=== PATIENT | male | born 1990 | race Caucasian/White ===

== ENCOUNTER 2017-03-30 04:45 | Emergency (ER) | payer OTHER ==
[~2017-03-30] VITALS: Ht 182.9 cm; Wt 81.2 kg
[2017-03-30 04:51] VITALS: BP 142/85
--- NOTE | 2017-03-30 04:51 | NUR ---
AMBULATED TO ER BED 5
--- NOTE | 2017-03-30 04:58 | NUR ---
Patient being evaluated by physician at bedside.
[2017-03-30] MEDS ORDERED: KETOROLAC 60 MG/2 ML VIAL IM ONE (05:00)
[2017-03-30 05:43] VITALS: BP 124/82
--- NOTE | 2017-03-30 05:47 | NUR ---
Patient discharged with v/s stable. Written and verbal after care instructions given and explained. Patient alert, oriented and verbalized understanding of instructions. Ambulatory with steady gait. All questions addressed prior to discharge. ID band removed. Patient advised to follow up with PMD. Rx of MOTRIN given. Patient educated on indication of medication including possible reaction and side effects. Opportunity to ask questions provided and answered.Client mentioned that he went to see his urologist x 1 week ago for a uti,client stated he has a kidney medical history.Client advised to follow up with urologist.
== END 2017-03-30 05:43 | disposition home or self-care (01) ==
LOC: MED 04:45
DX: M54.5 Low back pain (principal)
CPT/HCPCS: 96372; 99283; J1885; 81002

== ENCOUNTER 2017-04-21 09:08 | Emergency (ER) | payer OTHER ==
[~2017-04-21] VITALS: Ht 180.3 cm; Wt 80.7 kg
[2017-04-21 09:21] VITALS: BP 130/77
--- NOTE | 2017-04-21 09:22 | NUR ---
Patient ambulated to bed 7. RN evaluating patient at bedside.
--- NOTE | 2017-04-21 09:27 | NUR ---
Dr. Herrera evaluating patient at bedside.
--- NOTE | 2017-04-21 09:27 | NUR ---
PATIENT PRESENTS TO ED WITH C/O ABDOMINAL PAIN. PT STATES HE STARTED FEELING ABD PAIN 2 DAYS AGO BUT THE PAIN STARTED FEELING MORE SEVERE TODAY. PATIENT REPORTS N/V AND DIARRHEA. SKIN IS PINK/WARM/DRY; AAOX4 WITH EVEN STEADY GAIT; LUNGS CLEAR BL; HR EVEN AND REGULAR; PT DENIES ANY FEVER, CP, SOB, OR COUGH AT THIS TIME; PATIENT STATES PAIN OF 8/10 AT THIS TIME; VSS; PATIENT POSITIONED FOR COMFORT; HOB ELEVATED; BEDRAILS UP X2; BED DOWN. ER MD MADE AWARE OF PT STATUS.
[2017-04-21] MEDS ORDERED: DICYCLOMINE 20 MG/2 ML VIAL IM ONE (09:30)
[2017-04-21 10:10] LABS: BASOPHILS # (AUTO) 0.3 K/uL (0.00-0.22); BASOPHILS % (AUTO) 4.5 % (0.0-2.0); EOSINOPHILS # (AUTO) 0.2 K/uL (0-0.4); EOSINOPHILS % (AUTO) 3.1 % (0.0-4.0); HEMATOCRIT 48.1 % (36-52); HEMOGLOBIN 16.2 g/dL (12.0-18.0); LYMPHOCYTES # (AUTO) 1.5 K/uL (2.0-11.5); LYMPHOCYTES % (AUTO) 26.3 % (20.5-51.1); MEAN CORPUSCULAR HEMOGLOBIN 29 pg (27-31); MEAN CORPUSCULAR HGB CONC 34 g/dL (33-37); MEAN CORPUSCULAR VOLUME 86 fL (80-94); MONOCYTES # (AUTO) 0.5 K/uL (0.8-1.0); NEUTROPHILS # (AUTO) 3.3 K/uL (1.8-7.7); NEUTROPHILS % (AUTO) 57.1 % (42.2-75.2); PLATELET COUNT (AUTO) 188 K/uL (140-450); RED BLOOD CELL COUNT(AUTO) 5.59 MIL/uL (4.20-6.10); RED CELL DISTRIBUTION WIDTH 12.3 % (11.6-13.7); WHITE BLOOD COUNT (AUTO) 5.8 K/uL (4.8-10.8)
[2017-04-21 10:29] LABS: ANION GAP 12.2 (8-16); CARBON DIOXIDE 29.3 mmol/L (21-32); CREATININE 1.3 mg/dL (0.7-1.3); POTASSIUM 4.5 mmol/L (3.5-5.1)
[2017-04-21 10:35] LABS: ALBUMIN 4.2 g/dL (3.4-5.0); TOTAL BILIRUBIN 1.3 mg/dL (0.0-1.0)
[2017-04-21 12:17] VITALS: BP 129/80
--- NOTE | 2017-04-21 12:18 | NUR ---
Patient discharged with v/s stable. Written and verbal after care instructions given and explained. Patient alert, oriented and verbalized understanding of instructions. Ambulatory with steady gait. All questions addressed prior to discharge. ID band removed. Patient advised to follow up with PMD. Rx of MIRALAX AND BENTYL given. Patient educated on indication of medication including possible reaction and side effects. Opportunity to ask questions provided and answered.
== END 2017-04-21 12:18 | disposition home or self-care (01) ==
LOC: MED 09:08
DX: R10.33 Periumbilical pain (principal); R11.2 Nausea with vomiting, unspecified
CPT/HCPCS: 36415; 74000; 80053; 83690; 85025; 96372; 99285; J0500